=== PATIENT | female | born 1940 | race Caucasian/White ===

== ENCOUNTER 2018-05-02 15:59 | Day surgery (SDC) | payer MEDICARE, OTHER ==
[2018-05-02] MEDS ORDERED: DIPHENHYDRAMINE HCL 50 MG/ML VIAL ONE (17:03)
[2018-05-02] MEDS ORDERED: ONDANSETRON HCL INJ/PF 4 MG/2 ML SDV ONE (17:03)
[2018-05-02] MEDS ORDERED: FENTANYL CITRATE INJ/PF 100 MCG/2 ML AMPUL ONE (17:03)
[2018-05-02] MEDS ORDERED: NALOXONE HCL INJ/PF 0.4 MG/1 ML SDV ONE (17:04)
[2018-05-02] MEDS ORDERED: FLUMAZENIL INJ 0.5 MG/5 ML VIAL ONE (17:04)
[2018-05-02] MEDS ORDERED: EPINEPHRINE INJ 1 MG/10 ML DISP.SYRIN ONE (17:04)
[2018-05-02] MEDS ORDERED: GLUCAGON,HUMAN RECOMB 1 MG INJ ONE (17:04)
[2018-05-02] MEDS: MIDAZOLAM 2 MG/2 ML INJ ONE ×2 (17:36→17:40)
--- NOTE | 2018-05-02 18:09 | Operative Report ---
Operative Report DATE OF SURGERY: 05/02/18 Operative Report: Pre-op diagnosis: Iron deficiency anemia Post-op diagnosis: Sigmoid diverticulosis Surgery: Colonoscopy Medications: Versed 2mg, Fentanyl 500mcg IV push Tissue removed: None Procedure: After informed consent obtained from patient, conscious sedation was achieved. A digital rectal examination was performed and this was unremarkable. The colonoscope was inserted into the rectum and advanced to the cecum. The appendiceal orifice and the terminal ileum were both identified. The mucosa was examined into details as the colonoscope was slowly pulled out of the patient. The endoscope was retroflexed in the rectum. Patient tolerated the procedure well. Findings Terminal ileum: Cecum: Normal Ascending colon: Normal Transverse colon: Normal Descending colon: Normal Sigmoid colon: A few diverticuli was identified Rectum: Normal except for internal hemorrhoids Plan: High-fiber diet. Consider capsule endoscopy of small bowel OPERATION: . SURGEON: .
[2018-05-02 19:23] VITALS: BP 160/64
== END 2018-05-02 19:15 | disposition home or self-care (01) ==
LOC: END 15:59
PROVIDERS: ATTEND Internal Medicine Gastroenterology
DX: K57.30 Diverticulosis of large intestine without perforation or abscess without bleeding (principal); K64.8 Other hemorrhoids; D50.0 Iron deficiency anemia secondary to blood loss (chronic); I10 Essential (primary) hypertension; E11.9 Type 2 diabetes mellitus without complications; Z86.73 Personal history of transient ischemic attack (TIA), and cerebral infarction without residual deficits; Z88.2 Allergy status to sulfonamides
CPT/HCPCS: 45378; 82962; J2250; J3010; J0171; J1200; J1610; J2310; J2405; J3490